=== PATIENT | male | born 1965 | race Caucasian/White ===

== ENCOUNTER 2018-05-21 04:59 | Observation (INO) | payer SELFPAY ==
[2018-05-21] VITALS (13 sets, daily range): BP systolic 117–177; BP diastolic 72–97; PULSE 73–95; RESP 13–18; TEMP 36.4–37.1; O2SAT 94–100; BMI 24.6; BMI 23.9
--- NOTE | 2018-05-21 05:08 | RAD_ITS ---
STUDY: X-RAY CHEST REASON FOR EXAM: Male, 52 years old. Chest pain for 2 hours. TECHNIQUE: AP portable chest. COMPARISON: None. FINDINGS: The lungs are clear and expanded. There is no demonstrated pleural abnormality. No pneumothorax. Normal size heart. Normal mediastinum and cecilio. Normal visualized pulmonary arteries. Normal visualized aortic arch and descending thoracic aorta. Normal visualized thoracic spine. Normal visualized ribs, clavicles, and shoulders. There is no demonstrated abnormality of the visualized soft tissue structures of the upper abdomen. RAD/Chest 1 View (Portable) IMPRESSION: Normal x-ray examination of the chest. Electronically Signed: Ralf Murdock MD at 5:38 EDT , Service support ,
--- NOTE | 2018-05-21 05:08 | EKG12_ITS ---
Test Reason : CP Blood Pressure : / mmHG Vent. Rate : 072 BPM Atrial Rate : 072 BPM P-R Int : 144 ms QRS Dur : 084 ms QT Int : 402 ms P-R-T Axes : 069 071 048 degrees QTc Int : 440 ms Normal sinus rhythm with sinus arrhythmia Normal ECG Confirmed by URI TOBIAS, PRASHANTH ([id number]), features editor ELIECER CHAPMAN ([id number] on 05/24/2018 1:14:33 PM Referred By: MICHAEL Confirmed By:PRASHANTH GREWAL MD
[2018-05-21] MEDS: Aspirin 81 MG TAB.CHEW 324 MG PO (05:14)
[2018-05-21 05:18] LABS: Absolute Lymphocyte Count 2.25 X10^3/ul (0.83-4.51); Absolute Neutrophil Count 3.1 X10^3/uL (2.0-7.7); Basophil# 0.17 X10^3/uL; Basophil% 2.4 % (0-1); Eosinophil# 0.67 X10^3/uL; Eosinophils% 9.4 % (0-5); Hemoglobin 16.7 g/dl (13.0-16.5); Lymphocyte # 2.25 X10^3/ul (4.0); Lymphocyte % 31.6 % (19-41); Mean Corp Hgb Conc 35.5 g/gl (32-36); Mean Corpuscular Hgb 31.9 pg (27.0-32.0); Mean Corpuscular Volume 89.9 fL (80-94); Mean Platelet Vol. 10.2 fl (6.2-12.0); Monocyte# 0.96 X10^3/uL; Monocyte% 13.5 % (0-10); Neutrophil # 3.07 X10^3/uL (2.7-7.7); Platelet Count 185 K/mm3 (150-450); RBC Distribution Width CV 11.8 % (11.6-14.6); RBC Distribution Width SD 38.6 fl (35.1-43.9); Red Blood Count 5.23 M/mm3 (4.6-6.2); White Blood Count 7.1 K/mm3 (4.4-11.0)
[2018-05-21 05:19] LABS: POSITIVE COUNT NO; POSITIVE DIFFERENTIAL NO; POSITIVE MORPHOLOGY NO
--- NOTE | 2018-05-21 05:33 | ED.DCSUM_ITS ---
- ER Visit Summary Date of Service: 05/21/18 Chief Complaint: Chest pain History of Present Illness: The patient is a 52 M presenting with chest pain which began 2 hours prior to arrival. Patient states that he was getting ready for work and began having pain in the substernal region. He denies radiation. Pain is associated with nausea, vomiting, diaphoresis, shortness of breath. Currently 5 out of 10. At its worst it was 8 out of 10. He has history of diabetes, hypercholesterolemia. He is on lisinopril but states he does not have a history of hypertension. 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 Denies other PE/DVT risk factors. Physical Examination: Vitals are stable. Patient is afebrile. Alert no acute distress. HEENT exam is unremarkable. Neck is supple. Lungs are clear and equal bilaterally. Heart is regular rate and rhythm. Abdomen is soft nontender nondistended. Extremities are unremarkable. Skin is warm and dry. No focal neurologic deficit. Remainder of exam is unremarkable. Emergency Department Course and Treatment: Patient was given aspirin on arrival. EKG is sinus rate of 72 with no acute ischemic changes. Chest x-ray shows no acute process. CBC, chemistries unremarkable other than glucose 187. Troponin is negative. D-dimer negative. Patient was given nitro sublingual ? 1. He is pain-free on reevaluation. Patient has multiple risk factors and has never had a stress test. Will discuss with the hospitalist for observation. Disposition: Observation Impression: Chest pain This note was generated with Deltek dictation software. It may contain incorrect words, spelling, and punctuation that were not noted in review of the chart prior to signing ED Disposition - Plan for ED Patient: Chief Complaint: Chest Pain Referrals: Bart Calderon MD [Primary Care Provider] -
[2018-05-21 05:35] LABS: Anion Gap 9 (5-15); BUN 18 mg/dL (7-18); Chloride 103 mmol/L (98-107); EST Glomerular Filtration Rate 68 mL/min (>60); Est Glom Filt Rate - Afr Amer 82 mL/min (>60); Estimated Creatinine Clearance 84.67 ml/min; Glucose 187 mg/dL (74-106); Potassium 4.2 mmol/L (3.5-5.1); Sodium Level 141 mmol/L (136-145)
[2018-05-21 05:50] LABS: D-Dimer Quantitative (DVT/PE) 0.39 FEU/ug/m (0.27-0.49)
--- NOTE | 2018-05-21 07:09 | NURSING ---
DR NOEMI RODRIGUEZ
--- NOTE | 2018-05-21 07:10 | NURSING ---
ANSHUL FRANKLIN/MICHAEL
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
--- NOTE | 2018-05-21 07:11 | NURSING ---
PCU OBS MERCEDES FRANKLIN
--- NOTE | 2018-05-21 07:33 | NURSING ---
DR FRANKLIN IN WITH PATIENT
--- NOTE | 2018-05-21 07:48 | NURSING ---
CALLED TO ER THAT OKAY O BRING PT UP.
--- NOTE | 2018-05-21 08:10 | EKG12_ITS ---
Test Reason : Blood Pressure : / mmHG Vent. Rate : 076 BPM Atrial Rate : 076 BPM P-R Int : 146 ms QRS Dur : 082 ms QT Int : 404 ms P-R-T Axes : 069 079 059 degrees QTc Int : 454 ms Normal sinus rhythm Normal ECG Confirmed by URI TOBIAS, PRASHANTH ([id number]), rewrite editor ELIECER CHAPMAN ([id number]) on 05/24/2018 2:04:45 PM Referred By: NOEMI Confirmed By:PRASHANHT GREWAL MD
[2018-05-21 12:53] LABS: Hemoglobin A1c 6.8 % (4.2-6.3)
[2018-05-21 13:35] LABS: Bedside Glucose 95 mg/dL (70-110)
--- NOTE | 2018-05-21 13:41 | STE_ITS ---
Reason For Study: Chest Pain Stress Results Protocol: Walter Protocol Maximum Predicted HR: 169 bpm Target HR: 144 bpm% Max imum Predicted HR: 96 % DurationHeart Rate Stage (mm:ss) (bpm) BPCom ment Baseline 82 130/64 No Chest Pain Walter Protocol Stage I 3:00 12 6 152/68No Chest Pain Walter Protocol Stage II 3:00 15 0 178/70No Chest Pain Walter Protocol Stage III 1:00 16 2 / No Chest Pain Recovery 116 128/7 0No Chest Pain Stress Duration: 7:00 mm:ss Maximum Stress HR: 162 bpmM ETS: 7 Baseline Echocardiogram Findings Stress Echo Wall motion Data Resting WMIntermediate WMStress WM Resting Wall Motion Wall Motion Stress No regional wall motion No regional wall motion abnormalities noted. abnormalities noted. Ejection Fraction 55 %. Ejection Fraction 60 %. EKG Data Baseline ECG demonstrates normal sinus rhythm with a rate of 82 beats per minute. Normal intervals are noted. The resting blood pressure was 130/64. The patient exercised according to the regular Walter protocol for a total duration of 7min. The maximum heart rate attained was 162 beats per minute. This was 95% of maximum predicted heart rate. The patient exercised into stage 3 of the Walter protocol. During stress, there were no ST or T wave changes noted to suggest ischemia. At peak exercise, upsloping ST changes only were noted, which did not meet the criteria for ischemia. The peak blood pressure was 178/70. No arrhythmias noted. No clinical angina was noted. Interpretation Summary Normal resting LV systolic function. Nonstenotic valves. With stress, the LV size decreased and all segments augmented normally. The LVEF increased from 55% to 60. Negative for ischemia at 95% of MPHR and at 10.1 METS. The test was terminated due to leg fatigue and there was normal blood pressure response to exercise. Normal exercise stress echo with no evidence of ischemia at a high workload. Ordering Physician: Migdalia Zamora Referring Physician: Hugh Spivey Performed By: Alda Salinas, JACKIE, RVT
[2018-05-21 17:05] LABS: Bedside Glucose 113 mg/dL (70-110)
--- NOTE | 2018-05-21 18:02 | DCINST_ITS ---
- Discharge Diagnoses Current Active Problems: Current Active and Chronic Problems Chest pain (Acute) You will use the following diet at home:: Calorie/Carbohydrate Controlled ( specify 1200, 1400, etc), Cardiac Discharge Activity: Return to Normal Activity Call your doctor if you observe: Shortness of breath, Dizziness, Fainting spells , Chest pain Allergies/Adverse Reactions: Allergies No Known Allergies Allergy (Verified 05/21/18 05:03) Medications to take at Discharge Albuterol Inhaler [Ventolin Hfa] 1 puff INHALATION Q4H PRN PRN 05/21/18 Aspirin E.C. [Ecotrin] 81 mg PO DAILY@0800 05/21/18 Glyburide 2.5 mg PO DAILY 05/21/18 Lisinopril [Zestril] 5 mg PO DAILY 05/21/18 Metformin HCl 1,000 mg PO BID 05/21/18 Nitroglycerin [Nitrostat] 0.4 mg SUBLINGUAL Q5M PRN #10 tab 05/21/18 Simvastatin [Zocor] 10 mg PO QHS 05/21/18 The following prescriptions were given: Nitroglycerin [Nitrostat] 0.4 mg SUBLINGUAL Q5M PRN #10 tab PRN Reason: Cardiac/Chest Pain Primary Care Physician: Bart Calderon MD [Primary Care Provider] - Please follow up with your Primary Care Physician in: 1 Week Test Results: Test results from this visit will be discussed in further detail at your follow- up appointment, if applicable. Proposed Discharge Date: 05/21/18
--- NOTE | 2018-05-21 18:03 | PCM.DC.SUM ---
<Ca Leblanc - Last Filed: 05/21/18 18:10> Discharge Date and Diagnosis Date of Admission: 05/21/18 Date of Discharge: 05/21/18 - Primary Discharge Diagnosis Active and Suspected Problems 1. Chest pain-ACS ruled out. - Secondary Discharge Diagnosis Type 2 diabetes mellitus Hyperlipidemia Hospital Course and Treatment Imaging Results: Diagnostic Data Chest X-Ray 05/21/18 05:08 IMPRESSION: Normal x-ray examination of the chest. Electronically Signed: Ralf Murdock MD at 5:38 EDT , Service support , Operations: None Procedures: - - Stress echo Summary of Care Provided: The patient is a 52 year old M admitted [id number] due to chest pain. He has a past medical history of type 2 diabetes mellitus, hyperlipidemia, hypertension. Troponin negative. D-dimer negative. EKG without acute ST changes. Chest x-ray unremarkable. Patient underwent stress echo which showed no evidence of ischemia at a high workload. Patient will continue aspirin, statin, lisinopril at discharge. He was discharged with sublingual nitro as needed as well. He denies further chest pain during admission. Hemoglobin A1c 6.8%. Continue home metformin and glyburide. Follow-up with primary care physician in 1 week. Patient seen exam prior to discharge. Alert, oriented, no acute distress. Denies further chest pain. Heart rate regular rate and rhythm. Lungs clear. Neuro grossly intact. Abdomen soft, nontender. Skin intact. Normal affect. Vital signs stable. Discharge Diet: Carb Control Diet Discharge Activity: Return to Normal Activity Call your doctor if you observe: Shortness of breath, Dizziness, Fainting spells, Chest pain Home Medications: Medications to take at Discharge Albuterol Inhaler [Ventolin Hfa] 1 puff INHALATION Q4H PRN PRN 05/21/18 Aspirin E.C. [Ecotrin] 81 mg PO DAILY@0800 05/21/18 Glyburide 2.5 mg PO DAILY 05/21/18 Lisinopril [Zestril] 5 mg PO DAILY 05/21/18 Metformin HCl 1,000 mg PO BID 05/21/18 Nitroglycerin [Nitrostat] 0.4 mg SUBLINGUAL Q5M PRN #10 tab 05/21/18 Simvastatin [Zocor] 10 mg PO QHS 05/21/18 Following Prescrptions Were Given to Patient: Nitroglycerin [Nitrostat] 0.4 mg SUBLINGUAL Q5M PRN #10 tab PRN Reason: Cardiac/Chest Pain Primary Care Physician: Bart Calderon MD [Primary Care Provider] - Please follow up with your Primary Care Physician in: 1 Week Disposition: Home Minutes spent on discharge:: 35 Patient Condition:: Stable Medical Necessity - Tobacco Use Smoking Status: Never smoker Tobacco Use: Non-smoker Meaningful Use Info Meaningful Use Diagnoses (Choose all that apply): None applicable <Migdalia Zamora - Last Filed: 05/22/18 16:12> Hospital Course and Treatment Summary of Care Provided: The patient is a 52 year old M with a history of diabetes. He was admitted on 05/21/2018 with complaint of chest pain. Initial troponin was negative and d-dimer was negative EKG showed no acute ST changes. Chest x-ray was also unremarkable. Patient had a stress echo which showed no evidence of ischemia. Patient was stable and was discharged on aspirin statin and lisinopril and also sublingual nitro as needed. He is to follow-up with his primary care doctor in 1 week. [] Code Visit Inpatient E&M: 36501 Disch Hosp
--- NOTE | 2018-05-21 18:10 | DS.PCM_ITS ---
<Ca Leblanc - Last Filed: 05/21/18 18:10> Discharge Date and Diagnosis Date of Admission: 05/21/18 Date of Discharge: 05/21/18 - Primary Discharge Diagnosis Active and Suspected Problems 1. Chest pain-ACS ruled out. - Secondary Discharge Diagnosis Type 2 diabetes mellitus Hyperlipidemia Hospital Course and Treatment Imaging Results: Diagnostic Data Chest X-Ray 05/21/18 05:08 IMPRESSION: Normal x-ray examination of the chest. Electronically Signed: Ralf Murdock MD at 5:38 EDT , Service support , Operations: None Procedures: - - Stress echo Summary of Care Provided: The patient is a 52 year old M admitted 9017 due to chest pain. He has a past medical history of type 2 diabetes mellitus, hyperlipidemia, hypertension. Troponin negative. D-dimer negative. EKG without acute ST changes. Chest x- ray unremarkable. Patient underwent stress echo which showed no evidence of ischemia at a high workload. Patient will continue aspirin, statin, lisinopril at discharge. He was discharged with sublingual nitro as needed as well. He denies further chest pain during admission. Hemoglobin A1c 6.8%. Continue home metformin and glyburide. Follow-up with primary care physician in 1 week. Patient seen exam prior to discharge. Alert, oriented, no acute distress. Denies further chest pain. Heart rate regular rate and rhythm. Lungs clear. Neuro grossly intact. Abdomen soft, nontender. Skin intact. Normal affect. Vital signs stable. Discharge Diet: Carb Control Diet Discharge Activity: Return to Normal Activity Call your doctor if you observe: Shortness of breath, Dizziness, Fainting spells , Chest pain Home Medications: Medications to take at Discharge Albuterol Inhaler [Ventolin Hfa] 1 puff INHALATION Q4H PRN PRN 05/21/18 Aspirin E.C. [Ecotrin] 81 mg PO DAILY@0800 05/21/18 Glyburide 2.5 mg PO DAILY 05/21/18 Lisinopril [Zestril] 5 mg PO DAILY 05/21/18 Metformin HCl 1,000 mg PO BID 05/21/18 Nitroglycerin [Nitrostat] 0.4 mg SUBLINGUAL Q5M PRN #10 tab 05/21/18 Simvastatin [Zocor] 10 mg PO QHS 05/21/18 Following Prescrptions Were Given to Patient: Nitroglycerin [Nitrostat] 0.4 mg SUBLINGUAL Q5M PRN #10 tab PRN Reason: Cardiac/Chest Pain Primary Care Physician: Bart Calderon MD [Primary Care Provider] - Please follow up with your Primary Care Physician in: 1 Week Disposition: Home Minutes spent on discharge:: 35 Patient Condition:: Stable Medical Necessity - Tobacco Use Smoking Status: Never smoker Tobacco Use: Non-smoker Meaningful Use Info Meaningful Use Diagnoses (Choose all that apply): None applicable <Migdalia Zamora - Last Filed: 05/22/18 16:12> Hospital Course and Treatment Summary of Care Provided: The patient is a 52 year old M with a history of diabetes. He was admitted on with complaint of chest pain. Initial troponin was negative and d- dimer was negative EKG showed no acute ST changes. Chest x-ray was also unremarkable. Patient had a stress echo which showed no evidence of ischemia. Patient was stable and was discharged on aspirin statin and lisinopril and also sublingual nitro as needed. He is to follow-up with his primary care doctor in 1 week. [] Code Visit Inpatient E&M: 83482 Disch Hosp
== END 2018-05-21 18:01 | disposition home or self-care (01) ==
LOC: ED 05:41 → PCU 07:28
PROVIDERS: Admitting Provider Student in an Organized Health Care Education/Training Program; Emergency Provider Emergency Medicine; Family Provider Family Medicine; PCP Family Medicine; Visit Provider Student in an Organized Health Care Education/Training Program
DX: R07.89 Other chest pain (principal); E11.9 Type 2 diabetes mellitus without complications; E78.5 Hyperlipidemia, unspecified; I10 Essential (primary) hypertension; Z79.899 Other long term (current) drug therapy; Z79.82 Long term (current) use of aspirin; Z79.84 Long term (current) use of oral hypoglycemic drugs
CPT/HCPCS: 36415; 71045; 80048; 82962; 83036; 84484; 85025; 85379; 93005; 93017; 93350; 99218; 99285; A4216; G0378; J2785

== ENCOUNTER → 2019-10-17 10:31 | Outpatient (CLI) | payer SELFPAY ==
[2018-05-21 08:10] VITALS: BMI 23.9
[2019-10-17 12:45] LABS: ALB/GLOB Ratio 1.1 RATIO (0.9-2.4); AST(SGOT) 115 U/L (15-37); Alanine Aminotransfer ALT/SGPT 176 U/L (16-61); Albumin, Serum 3.9 g/dL (3.2-5.0); Alkaline Phosphatase 69 U/L (45-117); Anion Gap 6 (5-15); BUN 17 mg/dL (7-18); BUN/Creat Ratio 14.9 RATIO (10-20); Calcium,Total 8.7 mg/dL (8.5-10.1); Chloride 104 mmol/L (98-107); Creatinine, Serum 1.14 mg/dL (0.70-1.30); EST Glomerular Filtration Rate 72 mL/min (>60); Est Glom Filt Rate - Afr Amer 87 mL/min (>60); Globulin 3.5 g/dL (2.2-4.2); Glucose 267 mg/dL (74-106); Potassium 4.5 mmol/L (3.5-5.1); Protein, Total 7.4 g/dL (6.4-8.2); Sodium Level 138 mmol/L (136-145); Thyroid Stim Hormone (TSH) 1.05 uIU/mL (0.358-3.74)
== END ==
PROVIDERS: Family Provider Family Medicine; PCP Family Medicine; Referring Provider Family Medicine; Visit Provider Family Medicine
DX: E11.9 Type 2 diabetes mellitus without complications (principal)
CPT/HCPCS: 36415; 80053; 84403; 84443

== ENCOUNTER → 2019-11-14 15:59 | Outpatient (CLI) | payer SELFPAY ==
[2018-05-21 08:10] VITALS: BMI 23.9
[2019-11-14 17:36] LABS: Absolute Lymphocyte Count 0.51 X10^3/uL (0.83-4.51); Absolute Neutrophil Count 9.4 X10^3/uL (2.0-7.7); Basophil# 0.09 X10^3/uL; Basophil% 0.8 % (0-1); Eosinophil# 0.21 X10^3/uL; Eosinophils% 1.9 % (0-5); Hematocrit 45.2 % (40-54); Hemoglobin 15.2 g/dL (13.0-16.5); Lymphocyte # 0.51 X10^3/ul (4.0); Lymphocyte % 4.7 % (19-41); Mean Corp Hgb Conc 33.6 g/dL (32-36); Mean Corpuscular Hgb 30.6 pg (27.0-32.0); Mean Corpuscular Volume 90.9 fL (80-94); Monocyte# 0.57 X10^3/uL; Monocyte% 5.3 % (0-10); NRBC Flagged by Analyzer 0 % (0-5); Neutrophil # 9.36 X10^3/uL (2.7-7.7); Neutrophil % 86.9 % (47-70); POSITIVE DIFFERENTIAL YES; Platelet Count 143 K/mm3 (150-450); RBC Distribution Width CV 12.1 % (11.6-14.6); RBC Distribution Width SD 40.2 fl (35.1-43.9); Red Blood Count 4.97 M/mm3 (4.6-6.2); White Blood Count 10.8 K/mm3 (4.4-11.0)
[2019-11-14 17:38] LABS: Differential Indicated SCAN CRITERIA MET
[2019-11-14 18:12] LABS: Anisocytosis RARE; Macrocytosis RARE; Platelet Estimate ADEQUATE (ADEQ); Red Cell Morphology N CHROM NORMAL (NORM C&C)
[2019-11-14 18:32] LABS: AST(SGOT) 319 U/L (15-37); Alanine Aminotransfer ALT/SGPT 937 U/L (16-61); Albumin, Serum 3.9 g/dL (3.2-5.0); Alkaline Phosphatase 179 U/L (45-117); Bilirubin, Direct 4.17 mg/dL (0.00-0.30); GGTP 886 U/L (15-85); Globulin 3.9 g/dL (2.2-4.2); Protein, Total 7.8 g/dL (6.4-8.2)
[2019-11-15 09:13] LABS: Hepatitis B Surface Antigen Non-Reactive (Nonreactive); Hepatitis C Antibody Non-Reactive (Nonreactive)
[2019-11-16 05:06] LABS: Hepatitis B Core Ab Total Negative (Negative)
[2019-11-16 13:00] LABS: Hepatitis B Core AB IgM Negative (Negative)
== END ==
PROVIDERS: Family Provider Family Medicine; PCP Family Medicine; Referring Provider Family Medicine; Visit Provider Family Medicine
DX: N39.0 Urinary tract infection, site not specified (principal); R94.5 Abnormal results of liver function studies
CPT/HCPCS: 36415; 80076; 82977; 85025; 86704; 86705; 86803; 87086; 87340

== ENCOUNTER → 2019-11-14 16:44 | Outpatient (CLI) | payer SELFPAY ==
[2018-05-21 08:10] VITALS: BMI 23.9
--- NOTE | 2019-11-14 16:49 | US_ITS ---
STUDY: ABDOMINAL ULTRASOUND - RIGHT UPPER QUADRANT REASON FOR VISIT: Male, 53 years old ELEV LFTS SORE ABD TECHNIQUE: Ultrasound evaluation of the right upper quadrant was performed with real-time and static kolb-scale imaging. TECHNICAL QUALITY: Adequate. COMPARISON: None. FINDINGS: Liver: The liver measures 19.4 cm. There is increased echogenicity consistent with fatty infiltration. The bile ducts are within normal limits. There is hepatic color flow. The direction of portal flow is hepatopetal. There is no demonstrated mass lesion. Gallbladder: Normal distended gallbladder. The gallbladder wall measures 2 mm. There is a negative sonographic Jordan''s sign. There is no pericholecystic fluid. There is a solitary echogenic gallstone within the gallbladder. Common Bile Duct (C.B.D.): The common bile duct measures 4 mm. Pancreas: The pancreatic tail is poorly visualized. The body and head appear within normal limits. There is normal echogenicity of the pancreas. There is no demonstrated pancreatic mass or cyst. Right Kidney: Normal size of the right kidney. The right kidney measures 13.6 x 5.7 x 6.1 cm. Normal renal cortex. The right cortex measures 1.9 cm. There is no demonstrated renal mass or cyst. There is no right hydronephrosis. US/Abdomen Limited IMPRESSION: Cholelithiasis. Echogenic liver suggestive of steatosis. Pancreatic tail was poorly visualized. Electronically Signed: Jordi Son MD at 18:53 EST , Service support ,
== END ==
PROVIDERS: Family Provider Family Medicine; PCP Family Medicine; Referring Provider Family Medicine; Visit Provider Family Medicine
DX: R94.5 Abnormal results of liver function studies (principal)
CPT/HCPCS: 76705

== ENCOUNTER 2019-11-15 11:22 | Inpatient (IN) | payer OTHER, SELFPAY ==
[2019-11-15 11:23] VITALS: BP 111/64; PULSE 110; RESP 18; TEMP 36.6; O2SAT 99; BMI 24.0
--- NOTE | 2019-11-15 12:01 | CT_ITS ---
STUDY: CT ABDOMEN AND PELVIS WITH CONTRAST REASON FOR EXAM: Male, 53 years old. PT PRESENTS WITH ABDOMEN PAIN, JAUNDICE STARTING TODAY, KNOWN HX OF GALLSTONES RADIATION DOSAGE (If Supplied By Facility): CTDIvol = ( 11.63 ) mGy, DLP = ( 632.19 ) mGycm TECHNIQUE: Transaxial images were obtained from the dome of the diaphragm to the symphysis pubis without oral contrast. Oral and IV GASTROGRAFIN and 75ML ISOVUE 300 was administered. Sagittal and coronal images were reconstructed. Individualized dose optimization techniques were used for this CT. COMPARISON: Ultrasound dated November 14, 2019 FINDINGS: There is circumferential wall thickening of the visualized distal esophagus. There is an enlarged left paraesophageal lymph node measuring up to 1.1 cm in short axis. There is minimal dependent atelectasis within the lower lobes. The visualized portions of the heart are within normal limits. There is decreased attenuation of the liver consistent with steatosis. There is a gallstone within the gallbladder. There is a 3.1 x 4.4 mm round calcified density within the common bile duct (image 70 series 601); there is no associated ductal dilatation visualized. There are prominent nonpathologically enlarged lymph node within the upper abdomen including within the gastrohepatic region. Normal spleen. Normal pancreas. Normal bilateral adrenal glands. There is a chest mildly characterize low-attenuation focus within the right kidney which may reflect an underlying cyst. There is a faint cortical calcification within the left kidney. Normal visualized stomach. Normal small intestine. Normal colon. The appendix is visualized and appears normal. Normal abdominal aorta. Normal inferior vena cava. Normal retroperitoneum. Normal urinary bladder. Normal abdominal wall. There are diffuse degenerative changes of the visualized lumbar spine. There is a L1 anterior vertebral body compression deformity that appears chronic. There are old bilateral inferior pubic rami fractures. CT/Abdomen/Pelvis WITH Contrast IMPRESSION: Findings suggestive of choledocholithiasis. Cholelithiasis. Fatty infiltration of the liver. Degenerative changes of the lumbar spine Electronically Signed: Meera Srivastava MD at 14:45 EST Tel , Service support ,
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
[2019-11-15] MEDS: 0.9% Normal Saline 1,000 ML 1000 ML IV (12:15)
[2019-11-15 12:18] LABS: Absolute Lymphocyte Count 0.55 X10^3/uL (0.83-4.51); Absolute Neutrophil Count 5.3 X10^3/uL (2.0-7.7); Basophil# 0.05 X10^3/uL; Basophil% 0.7 % (0-1); Eosinophil# 0.07 X10^3/uL; Hematocrit 43.2 % (40-54); Hemoglobin 14.7 g/dL (13.0-16.5); Lymphocyte # 0.55 X10^3/ul (4.0); Lymphocyte % 8.2 % (19-41); Mean Corpuscular Hgb 30.8 pg (27.0-32.0); Mean Corpuscular Volume 90.4 fL (80-94); Mean Platelet Vol. 10.6 fl (6.2-12.0); Monocyte# 0.76 X10^3/uL; Monocyte% 11.3 % (0-10); NRBC Flagged by Analyzer 0 % (0-5); Neutrophil # 5.27 X10^3/uL (2.7-7.7); Neutrophil % 78.5 % (47-70); POSITIVE DIFFERENTIAL YES; Platelet Count 106 K/mm3 (150-450); RBC Distribution Width CV 12.5 % (11.6-14.6); RBC Distribution Width SD 41.3 fl (35.1-43.9); Red Blood Count 4.78 M/mm3 (4.6-6.2); White Blood Count 6.7 K/mm3 (4.4-11.0)
[2019-11-15 12:20] LABS: Differential Indicated SCAN CRITERIA MET
[2019-11-15 12:27] LABS: Bacteria 0 SEEN /hpf (None Seen); Mucous, Urine 0 SEEN /hpf (<or=2+)
[2019-11-15 12:30] LABS: Color, Urine Yellow (Yellow); Glucose, Dipstick 50 mg/dl (Normal); Ketone-Dipstick 15 mg/dl (Negative); Leukocyte Esterase-Dipstick 25 /ul (Negative); Nitrite-Dipstick Positive (Negative); Occult Blood-Urine 250 /ul (Negative); Protein-Dipstick 30 mg/dl (Negative); Specific Gravity, Urine 1.025 (1.002-1.030); Urine Bilirubin Dipstick 6 mg/dL (Negative); Urine Clarity Sl. Cloudy (Clear); Urine Urobilinogen 4 mg/dl (Normal)
[2019-11-15 12:31] LABS: AST(SGOT) 161 U/L (15-37); Alanine Aminotransfer ALT/SGPT 590 U/L (16-61); Albumin, Serum 3.3 g/dL (3.2-5.0); Alkaline Phosphatase 140 U/L (45-117); Anion Gap 9 (5-15); BUN 25 mg/dL (7-18); BUN/Creat Ratio 15.4 RATIO (10-20); Bilirubin, Direct 3.85 mg/dL (0.00-0.30); Calcium,Total 9.3 mg/dL (8.5-10.1); Chloride 106 mmol/L (98-107); Creatinine, Serum 1.62 mg/dL (0.70-1.30); EST Glomerular Filtration Rate 48 mL/min (>60); Est Glom Filt Rate - Afr Amer 58 mL/min (>60); Estimated Creatinine Clearance 62.02 ml/min; Globulin 3.9 g/dL (2.2-4.2); Glucose 229 mg/dL (74-106); International Normalized Ratio 1.3; Lipase 147 U/L (73-393); Partial Thromboplast Time 33.4 Seconds (24.1-36.2); Protein, Total 7.2 g/dL (6.4-8.2); Prothrombin Time (Protime)PT. 16.4 SECONDS (11.7-14.9); Sodium Level 137 mmol/L (136-145)
[2019-11-15 12:46] LABS: Calcium Oxalate Crystals Ur 1+ /hpf (<or=2+); Red Blood Cells-Urine 25-50 SEEN /hpf (0-5); Squamous Epithelial Cells - UA 0-5 SEEN /hpf (0-5); White Blood Cells 0-5 SEEN /hpf (0-5)
[2019-11-15] MEDS: 0.9% Normal Saline 1,000 ML 150 ML IV (13:11)
[2019-11-15 13:15] LABS: Bedside Glucose 185 mg/dL (70-110)
[2019-11-15 14:05] VITALS: PULSE 85; RESP 19; O2SAT 97
[2019-11-15 15:20] VITALS: BP 137/87; PULSE 84; RESP 13; O2SAT 100
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
--- NOTE | 2019-11-15 16:41 | NURSING ---
SURGERY ROBOTHEM CHOLEDOCHOLITHIASIS
[2019-11-15 16:42] VITALS: BP 131/84; PULSE 87; RESP 15; O2SAT 100
--- NOTE | 2019-11-15 17:07 | NURSING ---
NO SURGERY, TO FLOOR
[2019-11-15 17:26] VITALS: BMI 23.4
[2019-11-15 17:30] VITALS: BMI 23.5
[2019-11-15 17:38] VITALS: BP 122/81; PULSE 86; RESP 16; TEMP 36.5; O2SAT 99
[2019-11-15 18:41] LABS: Bedside Glucose 86 mg/dL (70-110)
[2019-11-15] MEDS: Dextrose 5%-Lactated Ringers 1,000 ML 125 ML IV (18:44)
--- NOTE | 2019-11-15 19:30 | NURSING ---
1L LR CURRENTLY RUNNING AT 125
[2019-11-15] MEDS: Dextrose 5%/0.9% NaCl 1,000 ML 125 ML IV (23:12)
[2019-11-15 23:30] VITALS: BP 127/88; PULSE 78; RESP 18; TEMP 36.6; O2SAT 98
[2019-11-15 23:46] LABS: Bedside Glucose 156 mg/dL (70-110)
[2019-11-16] VITALS (12 sets, daily range): BP systolic 125–150; BP diastolic 56–88; PULSE 69–83; RESP 14–18; TEMP 36.2–37; O2SAT 96–100; BMI 24.4
--- NOTE | 2019-11-16 | GASB_PTH ---
PATIENT: MISHA URIBE LOC: MS3 U#:[id number] AGE/SX: 53/M ROOM: [facility] RE11/16/[address]: Dr. Lesa Jose MD : [id number] BED: 1 DIS: 11/17/2019 SPEC #: [id number] RECD: 11/16/19 10:08 STATUS: MARLON ANA #: [id number] KESHIA: 11/16/19 00:[address]: Lesa Jose DEPT: SURGICAL PATHOLOGY RECD BY: Demian Butler ENTERED: 11/18/19 07:56 SP TYPE: Gastric Bx OTHR DR: Dr. Humberto Calderon MD Tissues: Gastric mucous membrane Procedures: PAS Fungus (control) Special Stain Group II Special Stain Group I Surgery Specimen Level IV Alcian Blue/PAS (control) HEADER OPERATION: ERCP PRE-OP DIAGNOSIS: Choledocholithiasis and thickened distal esophagus TISSUE SUBMITTED: Biopsy GE junction MICROSCOPIC DIAGNOSIS GE junction, biopsy: Fragments of gastroesophageal mucosa with ulceration, acute and chronic inflammation and reactive epithelial changes. Detached fragments of fibrinopurulent material. Intestinal metaplasia (goblet cell metaplasia) is not identified. Special stain for fungi is negative for organisms; matched control is appropriate. See comment. ISAAC:[place] 11/19/19 COMMENT Alcian blue/PAS stain with matched control is used in the evaluation of the specimen. MICROSCOPIC DESCRIPTION Slides are reviewed. GROSS DESCRIPTION Received in fixative is one container labeled with the patient's name and designated GE junction biopsy. The specimen consists of multiple irregular fragments of light [place]roga soft tissue that in aggregate measure 1.5 x 0.6 x 0.1 cm. The specimen is totally submitted in one cassette. / AM:[place] 11/18/19 TC:2 CPT: 17213, 31793, 20919
[2019-11-16] MEDS: HYDROmorphone 0.5 MG/0.5 ML SYRINGE IV ×2 (03:46→23:23)
[2019-11-16] MEDS: 0.9% Saline Lock 10 ML Syringe IV ×2 (03:46→10:19)
--- NOTE | 2019-11-16 04:00 | EKG12_ITS ---
Test Reason : PREOP Blood Pressure : / mmHG Vent. Rate : 082 BPM Atrial Rate : 082 BPM P-R Int : 152 ms QRS Dur : 084 ms QT Int : 402 ms P-R-T Axes : 063 071 049 degrees QTc Int : 469 ms Normal sinus rhythm Normal ECG Confirmed by URI TOBIAS, PRASHANTH ([id number]), slot editor ELIECER CHAPMAN ([id number]) on 11/20/2019 11:13:59 AM Referred By: CORNELL Confirmed By:PRASHANTH GREWAL MD
[2019-11-16 04:31] LABS: Absolute Lymphocyte Count 0.77 X10^3/uL (0.83-4.51); Absolute Neutrophil Count 3.4 X10^3/uL (2.0-7.7); Basophil# 0.06 X10^3/uL; Basophil% 1.1 % (0-1); Eosinophil# 0.44 X10^3/uL; Hematocrit 38.6 % (40-54); Lymphocyte # 0.77 X10^3/ul (4.0); Lymphocyte % 13.9 % (19-41); Mean Corp Hgb Conc 33.7 g/dL (32-36); Mean Corpuscular Volume 91.9 fL (80-94); Mean Platelet Vol. 11.1 fl (6.2-12.0); Monocyte# 0.82 X10^3/uL; Monocyte% 14.9 % (0-10); NRBC Flagged by Analyzer 0 % (0-5); Neutrophil # 3.41 X10^3/uL (2.7-7.7); Neutrophil % 61.7 % (47-70); Platelet Count 101 K/mm3 (150-450); RBC Distribution Width CV 12.8 % (11.6-14.6); RBC Distribution Width SD 42.9 fl (35.1-43.9); White Blood Count 5.5 K/mm3 (4.4-11.0)
[2019-11-16 04:59] LABS: AST(SGOT) 106 U/L (15-37); Alanine Aminotransfer ALT/SGPT 396 U/L (16-61); Albumin, Serum 2.7 g/dL (3.2-5.0); Alkaline Phosphatase 107 U/L (45-117); Anion Gap 1 (5-15); BUN 11 mg/dL (7-18); BUN/Creat Ratio 10.4 RATIO (10-20); Bilirubin, Direct 3.04 mg/dL (0.00-0.30); Calcium,Total 7.7 mg/dL (8.5-10.1); Chloride 110 mmol/L (98-107); Creatinine, Serum 1.06 mg/dL (0.70-1.30); EST Glomerular Filtration Rate 78 mL/min (>60); Est Glom Filt Rate - Afr Amer 94 mL/min (>60); Estimated Creatinine Clearance 94.78 ml/min; Globulin 3.4 g/dL (2.2-4.2); Glucose 188 mg/dL (74-106); Potassium 4.4 mmol/L (3.5-5.1); Protein, Total 6.1 g/dL (6.4-8.2); Sodium Level 139 mmol/L (136-145)
[2019-11-16] MEDS: Dextrose 5%/0.9% NaCl 1,000 ML 125 ML IV (05:45)
[2019-11-16 06:00] LABS: Bedside Glucose 201 mg/dL (70-110)
--- NOTE | 2019-11-16 07:30 | RAD_ITS ---
STUDY: ERCP REASON FOR EXAM: Male, 53 years old. ERCP W/ Stone Removal. Also Sphincterotomy, Balloon Dilation, Contrast Injection. FLUOROSCOPY TIME (if supplied): 178 seconds TECHNIQUE: Endoscopy and cannulation were carried out by the referring physician. COMPARISON: None. FINDINGS: Single image of ERCP is available not enough for accurate interpretation. Small filling defect in the distal common bile duct cannot be excluded. The examination is nondiagnostic. RAD/ERCP Biliary Only IMPRESSION: ERCP as described above. Electronically Signed: Dex Cortes MD at 15:53 EST Tel , Service support ,
--- NOTE | 2019-11-16 07:37 | PN.SURG_ITS ---
Patient Problems: Active and Suspected Problems Choledocholithiasis (Acute) Subjective: Patient states that abdominal pain is better denies any nausea or vomiting required no pain meds overnight patient's total bili did decrease to 3.8. - Physical Exam Vitals/I&O's: Vital Signs Temp Pulse Resp BP Pulse Ox 98.2 F 83 18 131/78 H 97 11/16/19 03:51 11/16/19 03:51 11/16/19 03:51 11/16/19 03:51 11/16/19 03:51 Oxygen Delivery Method Room Air Weight: 182 lb 12.211 oz Body Mass Index (BMI) 23.4 Finger Stick Blood Glucose 185 Intake and Output for Last 24 Hours 11/14/19 11/15/19 11/16/19 23:59 23:59 23:59 Intake Total 4330.42 / 4330.42 1100.00 / 1100.00 Output Total 900 / 900 1350 / 1350 Balance 3430.42 / 3430.42 -250.00 / -250.00 General: Alert, Oriented x3, Cooperative, No apparent distress HEENT: Atraumatic Lungs: Clear to auscultation Cardiovascular: Regular rate Abdomen: Soft, Non-Distended, Tender - Mild in the right upper quadrant no peritoneal signs Extremities: No clubbing, No cyanosis, No edema Neurological: Cranial nerves II-XII grossly intact Psych/Mental Status: Normal Affect Laboratory Results 11/15/19 12:00: WBC 6.7, RBC 4.78, Hgb 14.7, Hct 43.2, MCV 90.4, MCH 30.8, MCHC 34.0, RDW Std Deviation 41.3, RDW Coeff of Jean 12.5, Plt Count 106 L, MPV 10.6, Immature Gran % (Auto) 0.300, Neut % (Auto) 78.5 H, Lymph % (Auto) 8.2 L, [place] % (Auto) 11.3 H, Eos % (Auto) 1.0, Baso % (Auto) 0.7, Absolute Neuts (auto) 5.3, Absolute Lymphs (auto) 0.55 L, Nucleated RBC % 0 11/15/19 12:00: PT 16.4 H, INR 1.3, APTT 33.4 11/15/19 12:00: Sodium 137, Potassium 4.0, Chloride 106, Carbon Dioxide 22.0, Anion Gap 9, BUN 25 H, Creatinine 1.62 H, Estim Creat Clear Calc 62.02, Est GFR (MDRD) Af Amer 58 L, Est GFR (MDRD) Non-Af 48 L, BUN/Creatinine Ratio 15.4, Glucose 229 H, Calcium 9.3, Total Bilirubin 4.80 H, Direct Bilirubin 3.85 H, AST 161 H, ALT 590 H, Alkaline Phosphatase 140 H, Total Protein 7.2, Albumin 3.3, Globulin 3.9, Lipase 147 11/15/19 12:20: Urine Color Yellow, Urine Clarity Sl. Cloudy, Urine pH 5.0, Ur Specific [place] 1.025, Urine Protein 30 H, Urine Glucose (UA) 50 H, Urine Ketones 15 H, Urine Occult Blood 250 H, Urine Nitrite Positive H, Urine Bilirubin 6 H, Urine Urobilinogen 4 H, Ur Leukocyte Esterase 25 H, Urine RBC 25- 50 SEEN, Urine WBC 0-5 SEEN, Ur Squamous Epith Cells 0-5 SEEN, Calcium Oxalate Crystal 1+, Urine Bacteria 0 SEEN, Urine Mucus 0 SEEN 11/15/19 13:08: POC Glucose 185 H 11/15/19 18:11: POC Glucose 86 11/15/19 23:27: POC Glucose 156 H 11/16/19 04:07: WBC 5.5, RBC 4.20 L, Hgb 13.0, Hct 38.6 L, MCV 91.9, MCH 31.0, MCHC 33.7, RDW Std Deviation 42.9, RDW Coeff of Jean 12.8, Plt Count 101 L, MPV 11.1, Immature Gran % (Auto) 0.400, Neut % (Auto) 61.7, Lymph % (Auto) 13.9 L, [place] % (Auto) 14.9 H, Eos % (Auto) 8.0 H, Baso % (Auto) 1.1 H, Absolute Neuts (auto) 3.4, Absolute Lymphs (auto) 0.77 L, Nucleated RBC % 0 11/16/19 04:07: Sodium 139, Potassium 4.4, Chloride 110 H, Carbon Dioxide 28.0, Anion Gap 1 L, BUN 11, Creatinine 1.06, Estim Creat Clear Calc 94.78, Est GFR (MDRD) Af Amer 94, Est GFR (MDRD) Non-Af 78, BUN/Creatinine Ratio 10.4, Glucose 188 H, Calcium 7.7 L, Total Bilirubin 3.80 H, Direct Bilirubin 3.04 H, AST 106 H , ALT 396 H, Alkaline Phosphatase 107, Total Protein 6.1 L, Albumin 2.7 L, Globulin 3.4 11/16/19 04:07: Hemoglobin A1c Pending 11/16/19 05:36: POC Glucose 201 H Current Medications Albuterol Sulfate (Ventolin Aerosols) 2.5 mg INHALATION Q4H PRN PRN PRN Reason: SOB &/OR WHEEZING Hydromorphone HCl (Dilaudid Inj) 0.5 - 1 mg IV Q2H PRN PRN PRN Reason: Pain Score 1-08/22 Last Admin: 11/16/19 03:46 Dose: 0.5 mg Documented by: Piperacillin Sod/Tazobactam (Sod 3.375 gm/ Sodium Chloride) 50 mls @ 12.5 mls/hr IV Q8 JUNIOR Last Admin: 11/16/19 05:45 Dose: 12.5 mls/hr Documented by: Pantoprazole Sodium 40 mg/ (Sodium Chloride) 110 mls @ 330 mls/hr IV Q24 JUNIOR Dextrose/Sodium Chloride (Dextrose 5%/0.9% Nacl) 1,000 mls @ 100 mls/hr IV .Q10H JUNIOR Last Infusion: 11/16/19 07:36 Dose: 100 mls/hr Documented by: Insulin Human Lispro (Humalog Kwikpen (Bkc)) 0 unit SC Q6 JUNIOR; Protocol Last Admin: 11/16/19 05:45 Dose: Not Given Documented by: Lisinopril (Zestril) 5 mg PO DAILY JUNIOR Ondansetron HCl (Zofran) 4 mg IV Q8H PRN PRN PRN Reason: NAUSEA Sodium Chloride () 10 - 40 ml IV UD PRN PRN Reason: SALINE FLUSH Last Admin: 11/16/19 03:46 Dose: 10 ml Documented by: Medical Necessity - Tobacco Use Smoking Status: Never smoker Tobacco Use: Non-smoker Assessment/Plan All Active Problems Chest pain (Acute) Choledocholithiasis (Acute) 53-year-old male with obstructive jaundice, choledocholithiasis, cholelithiasis 1. Patient is undergoing an ERCP this morning with Dr. Adorno. 2. Laparoscopic cholecystectomy with cholangiograms planned for tomorrow 8 AM Lesa Jose M.D. Pager: [phone] [facility] [address] [place] [address] Office: [phone]
--- NOTE | 2019-11-16 07:46 | PCM.PN.SRG ---
Patient Problems: Active and Suspected Problems Choledocholithiasis (Acute) Subjective: Patient reports no abdominal pain today. - Physical Exam Vitals/I&O's: Vital Signs Temp Pulse Resp BP Pulse Ox 98.2 F 83 18 131/78 H 97 11/16/19 03:51 11/16/19 03:51 11/16/19 03:51 11/16/19 03:51 11/16/19 03:51 Oxygen Delivery Method Room Air Weight: 182 lb 12.211 oz Body Mass Index (BMI) 23.4 Finger Stick Blood Glucose 185 Intake and Output for Last 24 Hours 11/14/19 11/15/19 11/16/19 23:59 23:59 23:59 Intake Total 4330.42 / 4330.42 1100.00 / 1100.00 Output Total 900 / 900 1350 / 1350 Balance 3430.42 / 3430.42 -250.00 / -250.00 General: Alert, Oriented x3 Lungs: Clear to auscultation, Normal air movement Cardiovascular: Regular rate, Regular Rhythm Abdomen: Soft, Non Tender, Non-Distended Laboratory Results 11/15/19 12:00: WBC 6.7, RBC 4.78, Hgb 14.7, Hct 43.2, MCV 90.4, MCH 30.8, MCHC 34.0, RDW Std Deviation 41.3, RDW Coeff of Jean 12.5, Plt Count 106 L, MPV 10.6, Immature Gran % (Auto) 0.300, Neut % (Auto) 78.5 H, Lymph % (Auto) 8.2 L, [place] % (Auto) 11.3 H, Eos % (Auto) 1.0, Baso % (Auto) 0.7, Absolute Neuts (auto) 5.3, Absolute Lymphs (auto) 0.55 L, Nucleated RBC % 0 11/15/19 12:00: PT 16.4 H, INR 1.3, APTT 33.4 11/15/19 12:00: Sodium 137, Potassium 4.0, Chloride 106, Carbon Dioxide 22.0, Anion Gap 9, BUN 25 H, Creatinine 1.62 H, Estim Creat Clear Calc 62.02, Est GFR (MDRD) Af Amer 58 L, Est GFR (MDRD) Non-Af 48 L, BUN/Creatinine Ratio 15.4, Glucose 229 H, Calcium 9.3, Total Bilirubin 4.80 H, Direct Bilirubin 3.85 H, AST 161 H, ALT 590 H, Alkaline Phosphatase 140 H, Total Protein 7.2, Albumin 3.3, Globulin 3.9, Lipase 147 11/15/19 12:20: Urine Color Yellow, Urine Clarity Sl. Cloudy, Urine pH 5.0, Ur Specific [place] 1.025, Urine Protein 30 H, Urine Glucose (UA) 50 H, Urine Ketones 15 H, Urine Occult Blood 250 H, Urine Nitrite Positive H, Urine Bilirubin 6 H, Urine Urobilinogen 4 H, Ur Leukocyte Esterase 25 H, Urine RBC 25-50 SEEN, Urine WBC 0-5 SEEN, Ur Squamous Epith Cells 0-5 SEEN, Calcium Oxalate Crystal 1+, Urine Bacteria 0 SEEN, Urine Mucus 0 SEEN 11/15/19 13:08: POC Glucose 185 H 11/15/19 18:11: POC Glucose 86 11/15/19 23:27: POC Glucose 156 H 11/16/19 04:07: WBC 5.5, RBC 4.20 L, Hgb 13.0, Hct 38.6 L, MCV 91.9, MCH 31.0, MCHC 33.7, RDW Std Deviation 42.9, RDW Coeff of Jean 12.8, Plt Count 101 L, MPV 11.1, Immature Gran % (Auto) 0.400, Neut % (Auto) 61.7, Lymph % (Auto) 13.9 L, [place] % (Auto) 14.9 H, Eos % (Auto) 8.0 H, Baso % (Auto) 1.1 H, Absolute Neuts (auto) 3.4, Absolute Lymphs (auto) 0.77 L, Nucleated RBC % 0 11/16/19 04:07: Sodium 139, Potassium 4.4, Chloride 110 H, Carbon Dioxide 28.0, Anion Gap 1 L, BUN 11, Creatinine 1.06, Estim Creat Clear Calc 94.78, Est GFR (MDRD) Af Amer 94, Est GFR (MDRD) Non-Af 78, BUN/Creatinine Ratio 10.4, Glucose 188 H, Calcium 7.7 L, Total Bilirubin 3.80 H, Direct Bilirubin 3.04 H, AST 106 H, ALT 396 H, Alkaline Phosphatase 107, Total Protein 6.1 L, Albumin 2.7 L, Globulin 3.4 11/16/19 04:07: Hemoglobin A1c Pending 11/16/19 05:36: POC Glucose 201 H Current Medications Albuterol Sulfate (Ventolin Aerosols) 2.5 mg INHALATION Q4H PRN PRN PRN Reason: SOB &/OR WHEEZING Hydromorphone HCl (Dilaudid Inj) 0.5 - 1 mg IV Q2H PRN PRN PRN Reason: Pain Score 1-10/10 Last Admin: 11/16/19 03:46 Dose: 0.5 mg Documented by: Piperacillin Sod/Tazobactam (Sod 3.375 gm/ Sodium Chloride) 50 mls @ 12.5 mls/hr IV Q8 [facility] Last Admin: 11/16/19 05:45 Dose: 12.5 mls/hr Documented by: Pantoprazole Sodium 40 mg/ (Sodium Chloride) 110 mls @ 330 mls/hr IV Q24 [facility] Dextrose/Sodium Chloride (Dextrose 5%/0.9% Nacl) 1,000 mls @ 100 mls/hr IV .Q10H [facility] Last Infusion: 11/16/19 07:36 Dose: 100 mls/hr Documented by: Insulin Human Lispro (Humalog Kwikpen (Bkc)) 0 unit SC Q6 [facility]; Protocol Last Admin: 11/16/19 05:45 Dose: Not Given Documented by: Lisinopril (Zestril) 5 mg PO DAILY [facility] Ondansetron HCl (Zofran) 4 mg IV Q8H PRN PRN PRN Reason: NAUSEA Sodium Chloride () 10 - 40 ml IV UD PRN PRN Reason: SALINE FLUSH Last Admin: 11/16/19 03:46 Dose: 10 ml Documented by: Medical Necessity - Tobacco Use Smoking Status: Never smoker Tobacco Use: Non-smoker Assessment/Plan All Active Problems Chest pain (Acute) Choledocholithiasis (Acute) 53-year-old male with choledocholithiasis 1. I discussed ERCP and with the patient in detail. Patient has a CT scan which shows a stone in the common bile duct as well as elevated LFTs. I discussed the risks including but not limited to bleeding, infection, perforation of bile duct or bowel, pancreatitis. The patient understands the risks as well to proceed. 2. The patient also has a thickened esophagus with an enlarged paraesophageal lymph node on the CT scan. I will perform an EGD first to examine the distal esophagus. 3. I explained endoscopy in detail to the patient. I explained the risks including but not limited to stroke or heart attack with anesthesia, perforation of the GI tract, bleeding, infection. I explained that any of these could necessitate further emergency surgery. The patient understands and all questions were answered sufficiently. The patient wishes to proceed with procedure. Yobany Adorno MD Pager: [facility] [address] [place] [address] Office:
--- NOTE | 2019-11-16 08:00 | GALL_PTH ---
PATIENT: MISHA URIBE LOC: MS3 U#:[id number] AGE/SX: 53/M ROOM: [facility] RE11/16/[address]: Dr. Lesa Jose MD : 1965 BED: 1 DIS: 11/17/2019 SPEC #: [id number] RECD: 11/18/19 09:55 STATUS: MARLON REFarhana #: [id number] KESHIA: 11/16/19 08:[address]: Lesa Jose DEPT: SURGICAL PATHOLOGY RECD BY: Lizandro Esposito ENTERED: 11/18/19 13:18 SP TYPE: CALI AMAYA DR: Dr. Humberto Calderon MD Tissues: Gallbladder, NOS Procedures: Surgery Specimen Level III HEADER OPERATION: Laparoscopic cholecystectomy with IOC PRE-OP DIAGNOSIS: Choledocholithiasis TISSUE SUBMITTED: Gallbladder MICROSCOPIC DIAGNOSIS Gallbladder, cholecystectomy: Chronic cholecystitis and cholelithiasis. AM:georiga 11/19/19 MICROSCOPIC DESCRIPTION Slides are reviewed. GROSS DESCRIPTION Received is one container labeled with the patient's name and designated gallbladder. The specimen consists of a gallbladder measuring 9 x 3.5 x 1.5 cm. The external surface is smooth and glistening. Focally, it is granular, hemorrhagic and contains cautery artifact. The lumen of the gallbladder contains yellow-green mucoid bile and a single dark quiroga-black calculus measuring 0.7 cm in maximum diameter. The mucosa is bile-stained and without any mass lesions. The gallbladder wall averages 0.3 cm in thickness and is free of mass lesions. Power Plant Electric[employer] sections of the gallbladder and the cystic duct at margin of resection are submitted in one cassette. / AM:[place] 11/18/19 TC:3 CPT: 95032
--- NOTE | 2019-11-16 08:47 | OP.EGD_ITS ---
Patient Name: Floyd Rivera Procedure Date: 11/16/2019 7:55 AM Date of : 1965 Age: 53 Procedure: Upper GI endoscopy Indications: Endoscopy to confirm esophageal ulcer that was demonstrated on previous imaging study Providers: Yobany Adorno MD Medicines: Monitored Anesthesia Care Patient Profile: This is a 53 year old male. Refer to note in patient chart for documentation of history and physical. Complications: No immediate complications. Estimated blood loss: Minimal. Procedure: Pre-Anesthesia Assessment: - Prior to the procedure, a History and Physical was performed, and patient medications and allergies were reviewed. The patient's tolerance of previous anesthesia was also reviewed. The risks and benefits of the procedure and the sedation options and risks were discussed with the patient. All questions were answered, and informed consent was obtained. Prior Anticoagulants: The patient has taken no previous anticoagulant or antiplatelet agents. After reviewing the risks and benefits, the patient was deemed in satisfactory condition to undergo the procedure. After obtaining informed consent, the endoscope was passed under direct vision. Throughout the procedure, the patient's blood pressure, pulse, and oxygen saturations were monitored continuously. The gastroscope was introduced through the mouth, and advanced to the second part of duodenum. The upper GI endoscopy was accomplished without difficulty. The patient tolerated the procedure well. Scope In: 8:24:27 AM Scope Out: 8:29:57 AM Total Procedure Duration Time 0 hours 5 minutes 30 seconds Findings: Few linear esophageal ulcers with no bleeding and no stigmata of recent bleeding were found. Biopsies were taken with a cold forceps for histology. Impression: - Non-bleeding esophageal ulcers. Biopsied. Recommendation: - Await pathology results. - Resume previous diet. - Continue present medications. Procedure Code(s): --- Professional --- 25092, Esophagogastroduodenoscopy, flexible, transoral; with biopsy, single or multiple Diagnosis Code(s): --- Professional --- K22.10, Ulcer of esophagus without bleeding R93.3, Abnormal findings on diagnostic imaging of other parts of digestive tract CPT copyright 2017 [employer]. All rights reserved. The codes documented in this report are preliminary and upon combat information center officer review may be revised to meet current compliance requirements. Yobany Adorno MD 11/16/2019 8:47:05 AM This report has been signed electronically. Number of Addenda: 0 Note Initiated On: 11/16/2019 7:55 AM
--- NOTE | 2019-11-16 08:49 | OP.ERCP_ITS ---
Patient Name: Floyd Rivera Procedure Date: 11/16/2019 7:25 AM Date of : 1965 Age: 53 Procedure: ERCP Indications: Bile duct stone(s) Providers: Yobany Adorno MD Medicines: General Anesthesia Patient Profile: This is a 53 year old male. Refer to note in patient chart for documentation of history and physical. Complications: No immediate complications. Estimated blood loss: Minimal. Procedure: Pre-Anesthesia Assessment: - Prior to the procedure, a History and Physical was performed, and patient medications and allergies were reviewed. The patient's tolerance of previous anesthesia was also reviewed. The risks and benefits of the procedure and the sedation options and risks were discussed with the patient. All questions were answered, and informed consent was obtained. Prior Anticoagulants: The patient has taken no previous anticoagulant or antiplatelet agents. After reviewing the risks and benefits, the patient was deemed in satisfactory condition to undergo the procedure. After obtaining informed consent, the scope was passed under direct vision. Throughout the procedure, the patient's blood pressure, pulse, and oxygen saturations were monitored continuously. The duodenoscope was introduced through the mouth, and advanced to the duodenum and used to inject contrast into the bile duct. The ERCP was accomplished without difficulty. The patient tolerated the procedure well. Scope In: 8:34:14 AM Scope Out: 8:42:49 AM Total Procedure Duration Time 0 hours 8 minutes 35 seconds Findings: The major papilla was normal. A 0.035 inch x 260 cm straight Dreamwire was passed into the biliary tree. The sphincterotome was passed over the guidewire and the bile duct was then deeply cannulated. Contrast was injected. Biliary sphincterotomy was made with a monofilament sphincterotome using ERBE electrocautery. There was no post-sphincterotomy bleeding. The biliary tree was swept with a 12 mm balloon starting at the bifurcation. Three stones were removed. No stones remained. The endoscope was withdrawn from the patient. Impression: - The major papilla appeared normal. - Choledocholithiasis was found. Complete removal was accomplished by biliary sphincterotomy and balloon extraction. - A biliary sphincterotomy was performed. - The biliary tree was swept. Recommendation: - [facility]. Procedure Code(s): --- Professional --- 35944, Endoscopic retrograde cholangiopancreatography (ERCP); with removal of calculi/debris from biliary/pancreatic duct(s) 61776, Endoscopic retrograde cholangiopancreatography (ERCP); with sphincterotomy/papillotomy Diagnosis Code(s): --- Professional --- K80.50, Calculus of bile duct without cholangitis or cholecystitis without obstruction CPT copyright 2017 [employer]. All rights reserved. The codes documented in this report are preliminary and upon rail switchman review may be revised to meet current compliance requirements. Yobany Adorno MD 11/16/2019 8:49:05 AM This report has been signed electronically. Number of Addenda: 0 Note Initiated On: 11/16/2019 7:25 AM
[2019-11-16 09:15] LABS: Bedside Glucose 272 mg/dL (70-110)
[2019-11-16] MEDS: Insulin Lispro 100 UNIT/ML INSULN.PEN SC ×2 (09:32→17:11)
[2019-11-16 09:56] LABS: Hemoglobin A1c 7.7 % (4.2-6.3)
[2019-11-16] MEDS: Lisinopril 5 MG Tablet PO (10:18)
[2019-11-16] MEDS: Pantoprazole Sodium 20 MG Tablet PO (10:18)
[2019-11-16 12:26] LABS: Bedside Glucose 192 mg/dL (70-110)
--- NOTE | 2019-11-16 14:08 | NURSING ---
BP mildly elevated at this time, patient had been up ambulating the hallway prior to VS assessment
[2019-11-16 17:26] LABS: Bedside Glucose 213 mg/dL (70-110)
[2019-11-16] MEDS: Pantoprazole Sodium 40 MG Tablet PO (21:52)
[2019-11-16 23:20] LABS: Bedside Glucose 145 mg/dL (70-110)
[2019-11-17] VITALS (10 sets, daily range): BP systolic 131–170; BP diastolic 78–97; PULSE 68–96; RESP 15–18; TEMP 36.2–37.2; O2SAT 94–98
[2019-11-17] MEDS: Dextrose 5%/0.9% NaCl 1,000 ML 100 ML IV ×2 (00:40→11:08)
[2019-11-17 05:04] LABS: Absolute Lymphocyte Count 1.14 X10^3/uL (0.83-4.51); Basophil# 0.07 X10^3/uL; Basophil% 1.6 % (0-1); Eosinophil# 0.41 X10^3/uL; Eosinophils% 9.4 % (0-5); Hematocrit 36.6 % (40-54); Hemoglobin 12.3 g/dL (13.0-16.5); Lymphocyte # 1.14 X10^3/ul (4.0); Lymphocyte % 26.3 % (19-41); Mean Corp Hgb Conc 33.6 g/dL (32-36); Mean Corpuscular Hgb 30.7 pg (27.0-32.0); Mean Corpuscular Volume 91.3 fL (80-94); Mean Platelet Vol. 10.5 fl (6.2-12.0); Monocyte# 0.73 X10^3/uL; Monocyte% 16.8 % (0-10); NRBC Flagged by Analyzer 0 % (0-5); Neutrophil # 1.98 X10^3/uL (2.7-7.7); Neutrophil % 45.7 % (47-70); Platelet Count 115 K/mm3 (150-450); RBC Distribution Width CV 12.6 % (11.6-14.6); RBC Distribution Width SD 42.4 fl (35.1-43.9); Red Blood Count 4.01 M/mm3 (4.6-6.2); White Blood Count 4.3 K/mm3 (4.4-11.0)
[2019-11-17 05:18] LABS: AST(SGOT) 93 U/L (15-37); Alanine Aminotransfer ALT/SGPT 300 U/L (16-61); Albumin, Serum 2.5 g/dL (3.2-5.0); Alkaline Phosphatase 107 U/L (45-117); Anion Gap 5 (5-15); BUN 7 mg/dL (7-18); BUN/Creat Ratio 6.7 RATIO (10-20); Bilirubin, Direct 3.11 mg/dL (0.00-0.30); Calcium,Total 7.9 mg/dL (8.5-10.1); Chloride 108 mmol/L (98-107); Creatinine, Serum 1.05 mg/dL (0.70-1.30); EST Glomerular Filtration Rate 79 mL/min (>60); Est Glom Filt Rate - Afr Amer 95 mL/min (>60); Estimated Creatinine Clearance 95.68 ml/min; Globulin 3.5 g/dL (2.2-4.2); Glucose 160 mg/dL (74-106); Potassium 3.8 mmol/L (3.5-5.1); Sodium Level 138 mmol/L (136-145)
[2019-11-17 07:00] LABS: Bedside Glucose 177 mg/dL (70-110)
--- NOTE | 2019-11-17 07:00 | RAD_ITS ---
PROCEDURE: INTRAOPERATIVE CHOLANGIOGRAM DATE OF EXAMINATION: 11/17/2019 INDICATION: Male, 53 years old. Following a laparoscopic cholecystectomy an intraoperative cholangiogram was performed by the surgeon. 50.0 seconds of fluoroscopy time. 25 images. TECHNIQUE: Under fluoroscopic guidance an intraoperative cholangiogram was performed with serial digital images obtained. FINDINGS: There is normal opacification of the common bile duct, hepatic duct, right and left hepatic ducts. The ducts are normal in size. There is eccentric, fixed filling defect of the lower CBD seen on multiple images. The contrast flows into the second portion of the duodenum. RAD/Cholangiogram/ O R,Initial IMPRESSION: Eccentric fixed defect in the inferior CBD just above the ampulla could represent adherent debris, choledocholithiasis or mass. Electronically Signed: Justice Verma MD ([place]) at 12:18 EST , Service support ,
--- NOTE | 2019-11-17 07:22 | PCM.PN.SRG ---
Patient Problems: Active and Suspected Problems Choledocholithiasis (Acute) Subjective: Patient denies pain or nausea or vomiting - Physical Exam Vitals/I&O's: Vital Signs Temp Pulse Resp BP Pulse Ox 98.1 F 71 15 148/85 H 96 11/17/19 05:50 11/17/19 05:50 11/17/19 05:50 11/17/19 05:50 11/17/19 05:50 Oxygen Delivery Method Room Air Weight: 190 lb 7.67 oz Body Mass Index (BMI) 24.4 Finger Stick Blood Glucose 272 Intake and Output for Last 24 Hours 11/15/19 11/16/19 11/17/19 23:59 23:59 23:59 Intake Total 4330.42 / 4330.42 3065.00 / 3065.00 50 / 50 Output Total 900 / 900 4400 / 4400 850 / 850 Balance 3430.42 / 3430.42 -1335.00 / -1335.00 -800 / -800 General: Alert, Oriented x3, Cooperative, No apparent distress HEENT: Atraumatic Lungs: Normal air movement Cardiovascular: Regular rate Abdomen: Soft, Non-Distended, Tender - Mild right upper quadrant pain, no peritoneal signs Laboratory Results 11/16/19 04:07: Hemoglobin A1c 7.7 H 11/16/19 09:08: POC Glucose 272 H 11/16/19 12:18: POC Glucose 192 H 11/16/19 17:09: POC Glucose 213 H 11/16/19 23:14: POC Glucose 145 H 11/17/19 04:25: WBC 4.3 L, RBC 4.01 L, Hgb 12.3 L, Hct 36.6 L, MCV 91.3, MCH 30.7, MCHC 33.6, RDW Std Deviation 42.4, RDW Coeff of Jean 12.6, Plt Count 115 L, MPV 10.5, Immature Gran % (Auto) 0.200, Neut % (Auto) 45.7 L, Lymph % (Auto) 26.3, [place] % (Auto) 16.8 H, Eos % (Auto) 9.4 H, Baso % (Auto) 1.6 H, Absolute Neuts (auto) 2.0, Absolute Lymphs (auto) 1.14, Nucleated RBC % 0 11/17/19 04:25: Sodium 138, Potassium 3.8, Chloride 108 H, Carbon Dioxide 25.0, Anion Gap 5, BUN 7, Creatinine 1.05, Estim Creat Clear Calc 95.68, Est GFR (MDRD) Af Amer 95, Est GFR (MDRD) Non-Af 79, BUN/Creatinine Ratio 6.7 L, Glucose 160 H, Calcium 7.9 L, Total Bilirubin 4.00 H, Direct Bilirubin 3.11 H, AST 93 H, ALT 300 H, Alkaline Phosphatase 107, Total Protein 6.0 L, Albumin 2.5 L, Globulin 3.5 11/17/19 06:53: POC Glucose 177 H Current Medications Albuterol Sulfate (Ventolin Aerosols) 2.5 mg INHALATION Q4H PRN PRN PRN Reason: SOB &/OR WHEEZING Hydromorphone HCl (Dilaudid Inj) 0.5 - 1 mg IV Q2H PRN PRN PRN Reason: Pain Score 1-1010 Last Admin: 11/16/19 23:23 Dose: 0.5 mg Documented by: Piperacillin Sod/Tazobactam (Sod 3.375 gm/ Sodium Chloride) 50 mls @ 12.5 mls/hr IV Q8 [facility] Last Admin: 11/17/19 05:46 Dose: 12.5 mls/hr Documented by: Dextrose/Sodium Chloride (Dextrose 5%/0.9% Nacl) 1,000 mls @ 100 mls/hr IV .Q10H [facility] Last Admin: 11/17/19 00:40 Dose: 100 mls/hr Documented by: Insulin Human Lispro (Humalog Kwikpen (Bkc)) 0 unit SC Q6 [facility]; Protocol Last Admin: 11/17/19 00:04 Dose: Not Given Documented by: Lisinopril (Zestril) 5 mg PO DAILY [facility] Last Admin: 11/16/19 10:18 Dose: 5 mg Documented by: Ondansetron HCl (Zofran) 4 mg IV Q8H PRN PRN PRN Reason: NAUSEA Pantoprazole Sodium (Protonix) 40 mg PO BID [facility] Last Admin: 11/16/19 21:52 Dose: 40 mg Documented by: Sodium Chloride () 10 - 40 ml IV UD PRN PRN Reason: SALINE FLUSH Last Admin: 11/16/19 10:19 Dose: 10 ml Documented by: Medical Necessity - Tobacco Use Smoking Status: Never smoker Tobacco Use: Non-smoker Assessment/Plan All Active Problems Chest pain (Acute) Choledocholithiasis (Acute) 53-year-old male with obstructive jaundice, choledocholithiasis, cholelithiasis 1. Laparoscopic cholecystectomy with cholangiograms - 8 AM Lesa Jose M.D. Pager: [phone] [facility] [address] [place] [address], [address] [place] [address] Office: [phone]
[2019-11-17] MEDS: Bupivacaine Mpf 0.5% 30 ML VIAL (09:15)
--- NOTE | 2019-11-17 09:22 | OP.PCM_ITS ---
Report of Operation Date of Procedure: 11/17/19 Pre-Operative Diagnosis: Acute cholecystitis, cholelithiasis, choledocholi thiasis status post ERCP Post-Operative Diagnosis: Same Surgery/Procedure Performed:: Laparoscopic cholecystectomy with cholangiograms Type of Anesthesia:: General/Supplemental Anesthesiologist: Fletcher Mobley Special Medications: Zosyn 3.375 g IV every 8 given on the floor for choledocholithiasis and cholecystitis Specimen's removed: Gallbladder Estimated Blood Loss (mL): 10 Fluids Replaced: 600 cc Description of Procedure: Indications this is a 53 year-old male who developed abdominal pain/nausea/vomiting and on workup was found to have choledocholithiasis, cholecystitis, cholelithiasis, status post ERCP with sphincterotomy yesterday. Patient was on IV Zosyn 3.375 g IV every 8 on the floor.. Laparoscopic cholecystectomy was elected. Description procedure: The patient was placed on operating table in supine position. General Anesthesia was induced. A timeout was completed verifying correct patient, procedure, site, position and special equipment prior to beginning procedure. The abdomen was prepped and draped in usual sterile fashion. An incision was made in the natural skin line above the umbilicus. The fascia was elevated and incised. The peritoneum was elevated and incised. Entry into the peritoneum was confirmed visually and no bowel was noted in the vicinity of the incision. Delong trocar was placed. The abdomen was insufflated with carbon dioxide to a pressure of 12-15 mmHg. Patient tolerated insufflation well. The laparoscope was then inserted and abdomen inspected. No injuries from initial trocar placement were noted. Neal tional trochars were then inserted in the following locations 5 mm trocar in the epigastrium and 2 more 5 mm trochars along the right costal margin. The abdomen was inspected no abnormalities were found. The table is placed in reverse Trendelenburg position with the right side up. The adhesions between the gallbladder and omentum were lysed sharply. The dome of the gallbladder was grasped with atraumatic grasper passed through the lateral port and retracted over the dome of the liver. Infundibulum was then grasped with atraumatic grasper through the midclavicular port and retracted to the right lower quadrant. This maneuver exposed Calot's triangle. The peritoneum overlying the gallbladder infundibulum was then incised and cystic duct and artery identified and circumferentially dissected. Alicia catheter was used for cholangiograms. The cholangiogram showed good filling of the common bile duct into the duodenum with no filling defects, good filling of the right and left bile ducts as well. The cystic duct and artery were then doubly clipped and divided close to the gallbladder. The gallbladder then dissected from its peritoneal attachments by electrocautery. Hemostasis was checked and the gallbladder and contained stones were removed using the endoscopic retrieval bag through the umbilical port. The gallbladder is passed off table as specimen. The gallbladder fossa was copiously irrigated with saline and hemostasis obtained. There is no evidence of bleeding from the gallbladder fossa or cystic artery leakage of bile from the cystic duct stump. Secondary trochars removed under direct vision. No bleeding was noted the trocar sites. The laparoscope was withdrawn and umbilical trocar removed. The abdomen was allowed to collapse. The fascia of the 12 mm trocar was closed with a [id number] 0 Vicryl suture. The skin was closed with sutures of 4-0 Monocryl and Steri-Strips. The orogastric tube was removed and the patient was extubated. The patient tolerated procedure well and was taken to the postanesthesia care unit in stable condition. - Complications none
--- NOTE | 2019-11-17 09:27 | DCINST_ITS ---
Discharge Diet: Light diet - advance as tolerated Discharge Activity: May not drive while taking narcotic pain medications. May shower in (days): 1 Lifting Restrictions: No lifting greater than 20 pounds x 2 weeks no strenuous exercise for 5 wks Call your doctor if your incision/area has: Continuous Slow Oozing, Sudden Increased Bleeding, Increased Pain/ Swelling, Increased Redness, Foul Smelling Discharge, Swelling at the incision site Call your doctor if you observe: Fever of 101 or Higher Remove Dressing in (days):: 1 - Okay to remove op sites tomorrow, Steri-Strips should stay on until they fall off in 7 to 10 days if they do not follow-up in 10 days okay to remove Additional Instructions: Okay to take ibuprofen 400-600 mg PO q6hr PRN along with the Percocet. Avoid Tylenol since there is already Tylenol in the Percocet. Take all pain meds with food. Percocet can cause constipation recommend taking daily stool softener (i.e. Colace/docusate) while taking the pain meds. Recommend starting some MiraLAX in 1 to 2 days if no bowel movement. If still no bowel movement following day recommend taking magnesium citrate half the bottle and waiting 4-6 hours if still no results take the other half the bottle. Allergies/Adverse Reactions: Allergies No Known Allergies Allergy (Verified 11/15/19 11:27) Medications to take at Discharge Albuterol Inhaler [Ventolin Hfa] 1 puff INHALATION Q4H PRN PRN 05/21/18 Aspirin E.C. [Ecotrin] 81 mg PO DAILY@0800 05/21/18 Glyburide 2.5 mg PO DAILY 05/21/18 Lisinopril [Zestril] 5 mg PO DAILY 05/21/18 Nitroglycerin (INPATIENT USE) [Nitrostat] 0.4 mg SUBLINGUAL Q5M PRN #10 tab 05/21/18 Metformin HCl 1,000 mg PO BID 11/15/19 Montelukast Sodium 10 mg PO DAILY 11/15/19 Oxycodone HCl/Acetaminophen [Percocet 5/325] 1 - 2 tablet PO Q6H PRN PRN 4 Days #25 tablet 11/17/19 The following prescriptions were given: Oxycodone HCl/Acetaminophen [Percocet 5/325] 1 - 2 tablet PO Q6H PRN PRN 4 Days #25 tablet PRN Reason: Pain Transmission Status: Sent to [facility] Primary Care Physician: Bart Calderon MD [Primary Care Provider] - Test Results: Test results from this visit will be discussed in further detail at your follow- up appointment, if applicable. Please Follow Up With: Lesa Jose MD - After 5 PM and on the weekends call [phone] with any concerns When: Call the office for a follow-up appointment in 2 weeks [phone] Proposed Discharge Date: 11/17/19
[2019-11-17 09:56] LABS: Bedside Glucose 275 mg/dL (70-110)
[2019-11-17] MEDS: Insulin Lispro 100 UNIT/ML INSULN.PEN SC (09:58)
[2019-11-17] MEDS: Pantoprazole Sodium 40 MG Tablet PO (11:09)
[2019-11-17] MEDS: Lisinopril 5 MG Tablet PO (11:09)
--- NOTE | 2019-11-17 11:29 | NURSING ---
pt/family updated on d/c plan, at this time pt is still nauseas and sleepy, encouarged to sleep, given po protonix as ordered, gave am dose of bp meds-taking sprite and crackers
--- NOTE | 2019-11-17 11:30 | NURSING ---
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
[2019-11-17 12:10] LABS: Bedside Glucose 225 mg/dL (70-110)
[2019-11-17] MEDS: oxyCODONE 5 MG Tablet PO (13:14)
== END 2019-11-17 16:29 | disposition home or self-care (01) | DRG 418 ==
LOC: ED 16:19 → MS3 17:20
PROVIDERS: Surgery; Admitting Provider Surgery; Emergency Provider Emergency Medicine; Family Provider Family Medicine; PCP Family Medicine; Visit Provider Surgery
PROC: 0FC98ZZ Extirpation of Matter from Common Bile Duct, Via Natural or Artificial Opening Endoscopic (ICD-10-PCS; CPT 43260; principal; 2019-11-16 07:30)
PROC: 0DJ08ZZ Inspection of Upper Intestinal Tract, Via Natural or Artificial Opening Endoscopic (ICD-10-PCS; CPT 43235; 2019-11-16 07:30)
PROC: 0FT44ZZ Resection of Gallbladder, Percutaneous Endoscopic Approach (ICD-10-PCS; CPT 47610; principal; 2019-11-17 08:00)
DX: K80.63 Calculus of gallbladder and bile duct with acute cholecystitis with obstruction (principal); K22.10 Ulcer of esophagus without bleeding; I10 Essential (primary) hypertension
CPT/HCPCS: 36415; 74177; 74300; 74328; 76000; 80048; 80076; 81001; 82962; 83036; 83690; 85025; 85610; 85730; 87070; 87075; 87077; 87102; 87186; 87205; 87206; 88304; 88305; 88312; 88313; 93005; 99285; J7030; Q9967; A4216; J1610; J2405

== ENCOUNTER → 2019-11-27 10:05 | Outpatient (CLI) | payer SELFPAY ==
[2019-11-16 20:45] VITALS: BMI 24.4
[2019-11-27 11:08] LABS: ALB/GLOB Ratio 0.9 RATIO (0.9-2.4); AST(SGOT) 32 U/L (15-37); Alanine Aminotransfer ALT/SGPT 85 U/L (16-61); Albumin, Serum 3.6 g/dL (3.2-5.0); Alkaline Phosphatase 83 U/L (45-117); Anion Gap 4 (5-15); BUN 21 mg/dL (7-18); BUN/Creat Ratio 18.3 RATIO (10-20); Bilirubin, Direct 0.55 mg/dL (0.00-0.30); Calcium,Total 9.4 mg/dL (8.5-10.1); Chloride 102 mmol/L (98-107); Creatinine, Serum 1.15 mg/dL (0.70-1.30); EST Glomerular Filtration Rate 71 mL/min (>60); Est Glom Filt Rate - Afr Amer 86 mL/min (>60); Globulin 3.9 g/dL (2.2-4.2); Glucose 208 mg/dL (74-106); Potassium 4.6 mmol/L (3.5-5.1); Protein, Total 7.5 g/dL (6.4-8.2); Sodium Level 135 mmol/L (136-145)
== END ==
PROVIDERS: Family Provider Family Medicine; PCP Family Medicine; Referring Provider Surgery; Visit Provider Surgery
DX: K80.50 Calculus of bile duct without cholangitis or cholecystitis without obstruction (principal)
CPT/HCPCS: 36415; 80053; 82248

== ENCOUNTER 2020-07-12 10:26 | Emergency (ER) | payer OTHER, SELFPAY ==
[2019-11-16 20:45] VITALS: BMI 24.4
[2020-07-12 10:27] VITALS: BP 162/94; PULSE 109; RESP 17; TEMP 36.4; O2SAT 99; BMI 24.2
--- NOTE | 2020-07-12 10:53 | RAD_ITS ---
STUDY: X-RAY - LEFT SHOULDER REASON FOR EXAM: Male, 54 years old. PATIENT FELL ONTO HIS LEFT SHOULDER LAST NIGHT. PAIN LEFT SHOULDER SUPERIORLY INTO LEFT CLAVICLE. TECHNIQUE: 4 view(s) of the shoulder. COMPARISON: None. FINDINGS: Normal glenohumeral articulation. Normal acromioclavicular joint. Normal acromion. Normal humeral head and visualized proximal humerus. The soft tissue structures are unremarkable. Normal visualized pulmonary apex. RAD/Shoulder min 2 Views IMPRESSION: Normal x-ray examination of the shoulder. Electronically Signed: Allen Mckinnon MD at 11:30 EDT Tel , Service support ,
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
[2020-07-12] MEDS: Morphine 4 MG/ML Syringe 6 MG IM (11:03)
[2020-07-12] MEDS: Ibuprofen 600 MG Tablet PO (11:04)
--- NOTE | 2020-07-12 11:15 | RAD_ITS ---
STUDY: X-RAY - LEFT CLAVICLE REASON FOR EXAM: Male, 54 years old. PATIENT FELL ONTO HIS LEFT SHOULDER LAST NIGHT. PAIN LEFT SHOULDER SUPERIORLY INTO LEFT CLAVICLE. TECHNIQUE: 2 view(s) of the clavicle. COMPARISON: None. FINDINGS: Normal clavicle. Normal acromioclavicular articulation. Normal visualized sternoclavicular articulation. Normal visualized pulmonary apex. RAD/Clavicle IMPRESSION: Normal x-ray examination of the clavicle. Electronically Signed: Allen Mckinnon MD at 11:30 EDT Tel , Service support ,
== END 2020-07-12 12:36 | disposition home or self-care (01) ==
PROVIDERS: Emergency Provider Emergency Medicine; PCP Family Medicine
DX: S49.92XA Unspecified injury of left shoulder and upper arm, initial encounter (principal); W01.0XXA Fall on same level from slipping, tripping and stumbling without subsequent striking against object, initial encounter
CPT/HCPCS: 73000; 73030; 96374; 99282

== ENCOUNTER → 2020-12-02 11:40 | Outpatient (CLI) | payer SELFPAY ==
[2020-12-02 15:32] LABS: AST(SGOT) 123 U/L (15-37); Alanine Aminotransfer ALT/SGPT 184 U/L (16-61); Albumin, Serum 3.9 g/dL (3.2-5.0); Alkaline Phosphatase 74 U/L (45-117); Anion Gap 4 (5-15); BUN 18 mg/dL (7-18); BUN/Creat Ratio 15.5 RATIO (10-20); Calcium,Total 9.1 mg/dL (8.5-10.1); Chloride 106 mmol/L (98-107); Cholesterol 140 mg/dL (200); Creatinine, Serum 1.16 mg/dL (0.70-1.30); EST Glomerular Filtration Rate 70 mL/min (>60); Est Glom Filt Rate - Afr Amer 84 mL/min (>60); Globulin 3.9 g/dL (2.2-4.2); Glucose 246 mg/dL (74-106); High Density Lipoprotein 36 mg/dL; Potassium 4.5 mmol/L (3.5-5.1); Protein, Total 7.8 g/dL (6.4-8.2); Sodium Level 138 mmol/L (136-145); Triglycerides 197 mg/dL; Very Low Density Lipoprotein 39 mg/dL (5-40)
== END ==
PROVIDERS: PCP Family Medicine; Referring Provider Family Medicine; Visit Provider Family Medicine
DX: E78.5 Hyperlipidemia, unspecified (principal); I10 Essential (primary) hypertension
CPT/HCPCS: 36415; 80053; 80061

== ENCOUNTER → 2021-07-28 16:26 | Outpatient (CLI) | payer SELFPAY ==
[2021-07-28 18:01] LABS: ALB/GLOB Ratio 1.1 RATIO (0.9-2.4); AST(SGOT) 16 U/L (15-37); Alanine Aminotransfer ALT/SGPT 50 U/L (16-61); Albumin, Serum 4.1 g/dL (3.2-5.0); Alkaline Phosphatase 48 U/L (45-117); Anion Gap 7 (5-15); BUN 25 mg/dL (7-18); BUN/Creat Ratio 18.8 RATIO (10-20); Calcium,Total 9.2 mg/dL (8.5-10.1); Chloride 102 mmol/L (98-107); Creatinine, Serum 1.33 mg/dL (0.70-1.30); EST Glomerular Filtration Rate 59 mL/min (>60); Est Glom Filt Rate - Afr Amer 72 mL/min (>60); Globulin 3.7 g/dL (2.2-4.2); Glucose 241 mg/dL (74-106); PSA,Total - Annual Screen 0.91 ng/mL (0.00-4.00); Potassium 4.3 mmol/L (3.5-5.1); Protein, Total 7.8 g/dL (6.4-8.2); Sodium Level 136 mmol/L (136-145)
== END ==
PROVIDERS: PCP Family Medicine; Referring Provider Family Medicine; Visit Provider Family Medicine
DX: R79.89 Other specified abnormal findings of blood chemistry (principal); Z12.5 Encounter for screening for malignant neoplasm of prostate
CPT/HCPCS: 36415; 80053; 84153; G0103

== ENCOUNTER → 2022-10-11 | Outpatient (CLI) | payer SELFPAY ==
[2022-10-11 10:23] LABS: ALB/GLOB Ratio 1.2 RATIO (0.9-2.4); AST(SGOT) 36 U/L (15-37); Alanine Aminotransfer ALT/SGPT 51 U/L (16-61); Albumin, Serum 4.1 g/dL (3.2-5.0); Alkaline Phosphatase 56 U/L (45-117); Anion Gap 7 (5-15); BUN 20 mg/dL (7-18); BUN/Creat Ratio 16.9 RATIO (10-20); Calcium,Total 9.3 mg/dL (8.5-10.1); Chloride 104 mmol/L (98-107); Cholesterol 156 mg/dL (200); Creatinine, Serum 1.18 mg/dL (0.70-1.30); EST Glomerular Filtration Rate 68 mL/min (>60); Est Glom Filt Rate - Afr Amer 82 mL/min (>60); Globulin 3.5 g/dL (2.2-4.2); Glucose 250 mg/dL (74-106); High Density Lipoprotein 38 mg/dL; Potassium 4.3 mmol/L (3.5-5.1); Protein, Total 7.6 g/dL (6.4-8.2); Sodium Level 140 mmol/L (136-145); Triglycerides 269 mg/dL; Very Low Density Lipoprotein 54 mg/dL (5-40)
== END | disposition home or self-care (01) ==
LOC: MTLAB 07:30
PROVIDERS: PCP Family Medicine; Referring Provider Family Medicine; Visit Provider Family Medicine
DX: E78.5 Hyperlipidemia, unspecified (principal)
CPT/HCPCS: 36415; 80053; 80061

== ENCOUNTER → 2024-11-14 | Outpatient (CLI) | payer SELFPAY ==
[2024-11-14 10:22] LABS: Hematocrit 32.6 % (40-54); Hemoglobin 10.5 g/dL (13.0-16.5); Mean Corp Hgb Conc 32.2 g/dL (32-36); Mean Corpuscular Volume 86.9 fL (80-94); Mean Platelet Vol. 10.7 fl (6.2-12.0); Platelet Count 147 K/mm3 (150-450); RBC Distribution Width CV 12.6 % (11.6-14.6); RBC Distribution Width SD 39.9 fl (35.1-43.9); Red Blood Count 3.75 M/mm3 (4.6-6.2); White Blood Count 4.3 K/mm3 (4.4-11.0)
[2024-11-14 10:46] LABS: ALB/GLOB Ratio 1.1 RATIO (0.9-2.4); AST(SGOT) 25 U/L (15-37); Alanine Aminotransfer ALT/SGPT 42 U/L (16-61); Albumin, Serum 3.5 g/dL (3.2-5.0); Alkaline Phosphatase 48 U/L (45-117); Anion Gap 8 (5-15); BUN 18 mg/dL (7-18); BUN/Creat Ratio 14.3 RATIO (10-20); Calcium,Total 8.5 mg/dL (8.5-10.1); Chloride 107 mmol/L (98-107); Creatinine, Serum 1.26 mg/dL (0.70-1.30); EST Glomerular Filtration Rate 63 mL/min (>60); Est Glom Filt Rate - Afr Amer 76 mL/min (>60); Globulin 3.3 g/dL (2.2-4.2); Glucose 158 mg/dL (74-106); PSA,Total - Annual Screen 0.67 ng/mL (0.00-4.00); Potassium 4.1 mmol/L (3.5-5.1); Protein, Total 6.8 g/dL (6.4-8.2); Sodium Level 140 mmol/L (136-145)
== END | disposition home or self-care (01) ==
PROVIDERS: PCP Family Medicine; Referring Provider Family Medicine; Visit Provider Family Medicine
DX: F10.10 Alcohol abuse, uncomplicated (principal); Z12.5 Encounter for screening for malignant neoplasm of prostate
CPT/HCPCS: 36415; 80053; 84153; 85027; G0103